=== PATIENT | female | born 1945 | race Caucasian/White ===

== ENCOUNTER 2019-11-25 10:12 | Outpatient (CLI) | payer MEDICARE, SELFPAY ==
--- NOTE | 2019-11-25 10:26 | MR_ITS ---
WS: [id number] MRI BRAIN WITH AND WITHOUT CONTRAST HISTORY: TEMPORAL LOBE LESION COMPARISON: 11/24/2018, 11/22/2017 TECHNIQUE: Multiplanar imaging performed through the brain with Prohance 11 ml's IV. No acute infarcts are seen. Garibay-white matter differentiation is well preserved. Again noted is the 1 1 x 8 mm T2 and FLAIR signal hyperintensity in the anterior LEFT temporal lobe. This involves medial temporal lobe and hippocampal gyrus. On the postcontrast images there is no significant enhancement. There is thickening of the temporal lobe cortex with decreased signal on the postcontrast sequence. N o additional lesions are identified. Additional areas of prior ischemic disease in the periventricular white matter are stable. Ventricles and extra-axial spaces are normal. Clivus and pituitary gland are normal. Visualized posterior fossa and brainstem are also normal. Paranasal sinuses: Well aerated with no significant disease. Mastoid air cells: Bilateral mastoid air cell effusions. Similar to the prior examination with no imp rovement. Calvarium and scalp: Normal. MR/MR head wo/w con [id number] IMPRESSION: 1. Stable LEFT anterior temporal lobe nonenhancing hyperintense lesion measuri ng 11 x 8 mm. Suspicious for low-grade glioma. Long-term stability since 018 with minimal change. 2. Mild stable chronic small vessel ischemic changes and mild atrophy. 3. Bilateral stable mastoid effusions.
== END 2019-11-25 10:13 | disposition home or self-care (01) ==
LOC: RADWPI 10:18
PROVIDERS: Family Provider Registered Nurse; PCP Registered Nurse; Visit Provider Specialist
DX: G93.9 Disorder of brain, unspecified (principal); G93.6 Cerebral edema; G31.9 Degenerative disease of nervous system, unspecified
CPT/HCPCS: 70553; A9579

== ENCOUNTER → 2020-02-08 10:42 | Outpatient (BNVA) | payer MEDICARE, SELFPAY | PROVIDERS: Family Provider Registered Nurse; PCP Registered Nurse; Visit Provider Specialist | DX: G40.309 Generalized idiopathic epilepsy and epileptic syndromes, not intractable, without status epilepticus (principal); C71.9 Malignant neoplasm of brain, unspecified | CPT/HCPCS: 99213 ==

== ENCOUNTER 2021-01-31 08:03 | Outpatient (CLI) | payer MEDICARE, SELFPAY ==
--- NOTE | 2021-01-31 08:45 | MR_ITS ---
WS: [id number] MRI BRAIN WITH AND WITHOUT CONTRAST HISTORY: C71.9 - Malignant neoplasm of brain, unspecified COMPARISON: 11/25/2019, 11/24/2018 and 12/18/2017 TECHNIQUE: Multiplanar imaging performed through the brain with MultiHance 9 ml's IV. No acute infarcts are seen. Garibay-white matter differentiation is well preserved. Numerous T2 and FLAI R signal hyperintensities in the subcortical and periventricular distribution related to chronic micr ovascular ischemic disease most likely. Again noted is the area of increased T2 and FLAIR signal invo lving the anterior medial temporal perihippocampal gyrus. This does not enhance. Lesion seen anterior ly measures 10 x 6 mm and is unchanged. There is new very slight increased signal extending along the medial temporal lobe posterior. There is no enhancement associated with the new signal abnormality. No susceptibility artifacts or prior lacunar infarcts. Ventricles and extra-axial spaces are normal. Clivus and pituitary gland are normal. Visualized posterior fossa and brainstem are also normal. Postcontrast images are negative for masses or vascular malformations. Dural venous sinuses are normal. Paranasal sinuses: Well aerated with no significant disease. Mastoid air cells: Bilateral mastoid air cell effusions. Calvarium and scalp: Normal. MR/MR head wo/w con [id number] IMPRESSION: 1. Nonenhancing LEFT anterior temporal lobe lesion measuring 10 x 6 mm is unch anged. 2. New similar signal abnormality extending posteriorly along the medial LEFT temporal lobe which also does not enhance. Probably representing progression of the low-grade tumor which is thought to be a glioma. 3. Stable mild chronic small vessel ischemic type changes. 4. Stable bilateral mastoid effusions.
[2021-01-31 09:41] LABS: Blood Urea Nitrogen 14 mg/dL (8-23)
[2021-01-31] MEDS: gadobenate dimeglumine 20 mL vial IV (10:01)
== END 2021-01-31 08:04 | disposition home or self-care (01) ==
PROVIDERS: PCP Registered Nurse; Visit Provider Specialist
DX: C71.9 Malignant neoplasm of brain, unspecified (principal); G40.309 Generalized idiopathic epilepsy and epileptic syndromes, not intractable, without status epilepticus; G93.6 Cerebral edema
CPT/HCPCS: 70553; 82565; 84520; A9577

== ENCOUNTER → 2021-02-21 12:33 | Outpatient (BNVA) | payer MEDICARE, SELFPAY | PROVIDERS: PCP Registered Nurse; Visit Provider Specialist | DX: C71.9 Malignant neoplasm of brain, unspecified (principal); G40.309 Generalized idiopathic epilepsy and epileptic syndromes, not intractable, without status epilepticus | CPT/HCPCS: 99214 ==

== ENCOUNTER → 2021-11-20 09:44 | Outpatient (BNVA) | payer MEDICARE, SELFPAY | PROVIDERS: PCP Registered Nurse; Visit Provider Nurse Practitioner Family | DX: R53.83 Other fatigue (principal); R63.4 Abnormal weight loss | CPT/HCPCS: 80053; 84439; 84443; 84481; 85025 ==

== ENCOUNTER 2022-02-06 11:15 | Outpatient (CLI) | payer MEDICARE, SELFPAY ==
--- NOTE | 2022-02-06 11:45 | MR_ITS ---
WS: [id number] MRI HEAD WITHOUT CONTRAST TECHNIQUE: Sagittal T1, T2 axial, T2 axial FLAIR, axial and coronal T1 images, axial susceptibility w eighted imaging, axial diffusion weighted images, and coronal T2 images were obtained. CLINICAL INFORMATION: C71.9 - Malignant neoplasm of brain, unspecified COMPARISON: MRI 01/31/2021 and 11/25/2019 multiple additional comparisons dating back to 2018 FINDINGS: Again seen is the T2 hyperintense LEFT anterior temporal lobe lesion unchanged from Septemb er 2020 measuring 11 x 8 mm suspicious for low-grade glioma previously described. T2 signal abnor mality extending about the LEFT anterior temporal horn is unchanged in appearance. No evidence of inc reasing mass effect. T2 signal abnormality extends along the LEFT mesial temporal lobe and parahippoc ampal gyrus unchanged. No evidence of restricted diffusion to suggest acute ischemia. Ventricular system and basal cisterns are patent. Moderate small vessel changes. Moderate parenchymal volume loss. Small vessel changes in the krystin. Normal posterior fossa. Normal vascular flow voids at the skull base. No extra-axial fluid collections. No evidence of mass or mass effect. Partial opacification the mastoid air cells bilatera lly. Paranasal sinuses are well aerated. No hemosiderin on the susceptibly weighted images. Normal op tic chiasm and pituitary infundibulum. Moderate symmetric atrophy temporal lobes and hippocampal form ations. MR/MR head wo con* [id number] IMPRESSION: 1. No significant change in the T2 hyperintense LEFT anterior temporal lobe le sarah about the LEFT temporal horn suspected to represent low-grade glioma. 2. Small amount of T2 signal abnormality extending posteriorly along the mesia l temporal lobe and parahippocampal gyrus is unchanged. 3. Otherwise no significant changes compared to previous. 4. Moderate small vessel changes with moderate parenchymal volume loss. 5. Small bilateral mastoid effusions. 6. No hemosiderin on susceptibly weighted images.
== END 2022-02-06 11:16 | disposition home or self-care (01) ==
PROVIDERS: PCP Registered Nurse; Visit Provider Specialist
DX: C71.9 Malignant neoplasm of brain, unspecified (principal); G40.309 Generalized idiopathic epilepsy and epileptic syndromes, not intractable, without status epilepticus
CPT/HCPCS: 70551

== ENCOUNTER → 2022-02-19 12:31 | Outpatient (BNVA) | payer MEDICARE, SELFPAY | PROVIDERS: PCP Registered Nurse; Visit Provider Specialist | DX: G40.309 Generalized idiopathic epilepsy and epileptic syndromes, not intractable, without status epilepticus (principal); C71.9 Malignant neoplasm of brain, unspecified | CPT/HCPCS: 99213 ==

== ENCOUNTER → 2022-08-28 09:01 | Outpatient (BNVA) | payer MEDICARE, SELFPAY | PROVIDERS: PCP Registered Nurse; Visit Provider Registered Nurse | DX: G40.309 Generalized idiopathic epilepsy and epileptic syndromes, not intractable, without status epilepticus (principal); I47.9 Paroxysmal tachycardia, unspecified; R32 Unspecified urinary incontinence; R73.9 Hyperglycemia, unspecified; R79.89 Other specified abnormal findings of blood chemistry; J30.2 Other seasonal allergic rhinitis; R63.4 Abnormal weight loss | CPT/HCPCS: 80053; 80061; 83036; 85025 ==